=== PATIENT | male | born 1980 | race Caucasian/White ===

== ENCOUNTER 2017-06-14 22:42 | Emergency (ER) | payer BC ==
[~2017-06-14] VITALS: Ht 165.1 cm; Wt 75.0 kg
[2017-06-14 22:43] VITALS: BP 110/78
== END 2017-06-14 23:45 | disposition left against medical advice (07) ==
LOC: ER 23:18
DX: J34.89 Other specified disorders of nose and nasal sinuses (principal); R04.0 Epistaxis; Z53.21 Procedure and treatment not carried out due to patient leaving prior to being seen by health care provider